=== PATIENT | female | born 1970 | race Two or more races ===

== ENCOUNTER 2025-02-11 07:54 | Outpatient (RCR) | payer MEDICAID, SELFPAY | END 2025-02-19 23:59 | disposition home or self-care (01) | LOC: SCTC 07:54 | PROVIDERS: PCP Family Medicine; Referring Provider Family Medicine; Visit Provider Nurse Practitioner Family | DX: D72.820 Lymphocytosis (symptomatic) (principal); E66.9 Obesity, unspecified; Z68.33 Body mass index [BMI] 33.0-33.9, adult; E11.9 Type 2 diabetes mellitus without complications; I10 Essential (primary) hypertension; J30.89 Other allergic rhinitis | CPT/HCPCS: 99212; G0463 ==

== ENCOUNTER 2025-03-22 14:48 | Outpatient (RCR) | payer MEDICAID, SELFPAY | END 2025-04-21 23:59 | disposition home or self-care (01) | LOC: SCTC 14:48 | PROVIDERS: PCP Family Medicine; Referring Provider Family Medicine; Visit Provider Nurse Practitioner Family | DX: D72.820 Lymphocytosis (symptomatic) (principal); E11.9 Type 2 diabetes mellitus without complications; E66.9 Obesity, unspecified; Z68.33 Body mass index [BMI] 33.0-33.9, adult | CPT/HCPCS: 99212; G0463 ==